=== PATIENT | female | born 1950 | race Caucasian/White ===

== ENCOUNTER 2018-01-20 09:02 | Outpatient (CLI) | payer MEDICARE, OTHER ==
--- NOTE | 2018-01-21 14:23 | Mammography Report ---
DIGITAL BILATERAL SCREENING MAMMOGRAM: 01/20/2018 COMPARISON: Mammogram 04/23/2016. INDICATION: Screening. TECHNIQUE: Bilateral CC and MLO breast views. FINDINGS: The breast parenchyma is extremely dense, which may limit the sensitivity of mammography. No dominant mass, architectural distortion, or concerning cluster of microcalcifications is seen. IMPRESSION: 1. BI-RADS CATEGORY 1-NEGATIVE. 2. RECOMMEND ANNUAL SCREENING MAMMOGRAM. STANDARD QUALIFYING STATEMENTS: 1. This examination was reviewed with the aid of Computer-Aided Detection (CAD) . 2. A negative or benign imaging report should not delay biopsy if clinically suspicious findings are present. Consider surgical consultation if warranted. More than 5 % of cancers are not identified by imaging. 3. Dense breasts may obscure an underlying neoplasm. TD: 01/21/2018 14:23 MAHENDRA
== END 2018-01-20 09:03 | disposition home or self-care (01) ==
LOC: DI.S 09:02
PROVIDERS: ATTEND Physician Assistant
DX: Z12.31 Encounter for screening mammogram for malignant neoplasm of breast (principal)
CPT/HCPCS: 77067

== ENCOUNTER 2019-12-21 09:00 | Outpatient (CLI) | payer MEDICARE, OTHER ==
--- NOTE | 2019-12-26 08:46 | Mammography Report ---
Reason: SCREENING MAMMO Procedure Date: 12/21/2019 Accession Number: [id number] / [id number] Procedure: CATHERINE - Screening Mammo w/Shant CPT Code: Final Report FULL RESULT: EXAM: Screening Mammo w/Shant DATE: 12/21/2019 9:28 AM CLINICAL HISTORY: Screening encounter. History of nulliparity. TECHNIQUE: (B) - Bilateral CC and MLO views were obtained. Left laterally exaggerated cc view obtained. COMPARISON: 01/20/2018 through 07/03/2010. PARENCHYMAL PATTERN: (VD) - The breast(s) demonstrate(s) extremely dense parenchyma, limiting the sensitivity of mammography. FINDINGS: There are coarse typically benign calcifications. There are no suspicious masses, calcifications, or areas of distortion. IMPRESSION: Benign findings. BI-RADS category 2. RECOMMENDATION: (ANNUAL) - Recommend routine annual screening mammography. BI-RADS CATEGORY: (2) - Benign Findings. STANDARD QUALIFYING STATEMENTS: 1. This examination was not reviewed with the aid of Computer-Aided Detection (CAD). 2. A negative or benign imaging report should not preclude biopsy if clinically suspicious findings are present. 3. Dense breasts may obscure an underlying neoplasm. 4. This examination was reviewed with the aid of 3D breast imaging (tomosynthesis).
== END 2019-12-21 09:01 | disposition home or self-care (01) ==
LOC: DI 09:00
PROVIDERS: ATTEND Physician Assistant
DX: Z12.31 Encounter for screening mammogram for malignant neoplasm of breast (principal)
CPT/HCPCS: 77063; 77067

== ENCOUNTER 2019-12-21 09:04 | Outpatient (CLI) | payer MEDICARE, OTHER ==
--- NOTE | 2019-12-22 08:31 | Ultrasound Report ---
Reason: THYROID NODULE Procedure Date: 12/21/2019 Accession Number: [id number] / [id number] Procedure: US - Head or Neck Soft Tissue CPT Code: Final Report FULL RESULT: EXAM: THYROID ULTRASOUND EXAM DATE: 12/21/2019 09:55 AM. CLINICAL HISTORY: Thyroid nodule. COMPARISON: MR SOLITARIO WO(UNPAIRED) 08/10/2019 1:26 PM UNKNOWN 06/06/2010 1:28 PM UNKNOWN 05/15/2010 10:40 AM. TECHNIQUE: Real time sonographic imaging of the thyroid was performed by the orchard pruner. Multiple livestock sales representative static images were saved for review. FINDINGS: THYROID GLAND: Right Lobe: 5.3 x 1.9 x 1.8 cm, volume 9.5 cc. Normal background echotexture. Right Lobe Nodules: Mid pole mostly solid, isoechoic, circumscribed nodule 0.9 x 2.0 x 2.1 cm. Previously measured at 1.0 x 1.3 x 2.0 cm. Stable contour in appearance. This nodule was the subject of a biopsy in 2009. Low suspicion. Inferior pole spongiform nodule 0.7 x 0.7 x 0.7 cm. Very low suspicion. Left Lobe: 4.9 x 1.5 x 1.6 cm, volume 6.2 cc. Normal background echotexture. Left Lobe Nodules: 4 subcentimeter very low suspicion cystic and spongiform nodules seen, the largest in the lower pole measuring 0.7 x 0.5 x 0.4 cm. The other nodules measure 5 mm or less. Isthmus: 0.3 cm AP. Isthmic Nodules: None. LYMPH NODES: No adenopathy demonstrated in the central or lateral compartment. OTHER: None. IMPRESSION: No significant change in size or appearance of a nodule in the right thyroid lobe. Other smaller nodules bilaterally as above. No FNA recommended at this time. Management recommendations are based on 2015 [place] [employer] Management Guidelines for Adult Patients with Thyroid Nodules and Differentiated Thyroid Cancer. RADIA
== END 2019-12-21 09:05 | disposition home or self-care (01) ==
LOC: DI 09:04
PROVIDERS: ATTEND Physician Assistant
DX: E04.2 Nontoxic multinodular goiter (principal)
CPT/HCPCS: 76536

== ENCOUNTER 2020-06-25 13:43 | Outpatient (CLI) | payer MEDICARE, OTHER ==
--- NOTE | 2020-06-25 15:08 | XRAY Report ---
PROCEDURE: Abdomen 1 View X-Ray INDICATIONS: ABDOMINAL DISTENSION TECHNIQUE: 1 view of the abdomen were acquired. COMPARISON: None. FINDINGS: Surgical changes and devices: None. Bowel: No pneumoperitoneum. The bowel gas pattern is normal. Soft tissues: No masses; visualized solid organ contours appear normal in size. No suspicious abdom inal calcifications. Bones: No suspicious bony abnormalities. IMPRESSION: No acute intra-abdominal findings. Reviewed by: Whitney Sanchez MD on 06/25/2020 3:07 PM PDT Approved by: Whitney Sanchez MD on 06/25/2020 3:07 PM PDT Station ID: [id number]
== END 2020-06-25 13:44 | disposition home or self-care (01) ==
LOC: DI.S 13:43
PROVIDERS: ATTEND Nurse Practitioner Family
DX: R14.0 Abdominal distension (gaseous) (principal)
CPT/HCPCS: 74018

== ENCOUNTER 2020-08-22 15:59 | Outpatient (CLI) | payer MEDICARE, OTHER ==
--- NOTE | 2020-08-22 17:04 | XRAY Report ---
PROCEDURE: Cervical Spine 2 View INDICATIONS: S/P CERVICAL SPINAL FUSION TECHNIQUE: 3 view(s) of the cervical spine were acquired. COMPARISON: None. FINDINGS: Bones: No fractures or dislocations to the T1 level. The lateral masses of C1 appear intact on the odontoid view. No suspicious bony lesions. Status post anterior cervical discectomy and fusion from C5 through C7. No evidence for hardware complication. There is minimal anterolisthesis of C7 on T1. Straightening of cervical lordosis likely related to combination of surgical fusion and patient posit ioning. Soft tissues: No prevertebral soft tissue swelling. IMPRESSION: Status post ACDF of C5-C7 without hardware complication. Minimal anterolisthesis of C7 o n T1. Reviewed by: Todd Oakes MD on 08/22/2020 5:03 PM PDT Approved by: Todd Oakes MD on 08/22/2020 5:03 PM PDT Station ID: [id number]
== END 2020-08-22 16:00 | disposition home or self-care (01) ==
LOC: DI.S 15:59
PROVIDERS: ATTEND Physician Assistant
DX: M43.12 Spondylolisthesis, cervical region (principal); Z98.1 Arthrodesis status
CPT/HCPCS: 72040

== ENCOUNTER 2021-02-24 09:22 | Outpatient (CLI) | payer MEDICARE, OTHER ==
--- NOTE | 2021-02-25 09:58 | Mammography Report ---
BILATERAL DIGITAL SCREENING MAMMOGRAM 3D/2D WITH EXAGGERATED CC: 02/24/2021 CLINICAL: Routine screening. Comparison is made to exams dated: 12/21/2019 mammogram, 01/20/2018 mammogram, and 04/23/2016 mammogram - [facility]. The tissue of both breasts is extremely dense, which lowers the sen sitivity of mammography. No significant masses, calcifications, or other findings are seen in either breast. There has been no significant interval change. IMPRESSION: NEGATIVE There is no mammographic evidence of malignancy. A 1 year screening mammogram is recommended. This exam was interpreted at Station ID: [id number]. NOTE: For mammograms, a report in lay terms will be sent to the patient. Approximately 15% of breast malignancies will not be visualized mammographically. In the management of a palpable breast mass, a negative mammogram must not discourage biopsy of a clinically suspicious lesion. Electronically Signed By: Edu Duarte M.D. ar/penrad:02/24/2021 10:18:55 ACR BI-RADS Category 1: Negative 3341F PARENCHYMAL PATTERN: (VD) - The breast(s) demonstrate(s) extremely dense parenchyma, limiting the sen sitivity of mammography. BI-RADS CATEGORY: (1) - 1 RECOMMENDATION: (ANNUAL) - Recommend routine annual screening mammography. [id number] 1 year screening LATERALITY: (B)
== END 2021-02-24 09:23 | disposition home or self-care (01) ==
LOC: DI.S 09:22
PROVIDERS: ATTEND Nurse Practitioner Family
DX: Z12.31 Encounter for screening mammogram for malignant neoplasm of breast (principal)

== ENCOUNTER 2021-06-30 08:00 | Outpatient (CLI) | payer MEDICARE, OTHER | END 2021-06-30 23:59 | disposition home or self-care (01) | LOC: LAB.S 08:00 | PROVIDERS: ATTEND Physician Assistant Medical | DX: R53.83 Other fatigue (principal); Z20.822 Contact with and (suspected) exposure to COVID-19 ==

== ENCOUNTER 2023-06-07 07:07 | Outpatient (CLI) | payer MEDICARE, OTHER | END 2023-06-07 07:08 | disposition home or self-care (01) | LOC: LAB.S 07:07 | PROVIDERS: ATTEND Internal Medicine | DX: Z53.9 Procedure and treatment not carried out, unspecified reason (principal) ==

== ENCOUNTER 2023-07-09 07:02 | Outpatient (CLI) | payer MEDICARE, OTHER ==
[2023-07-09 07:38] LABS: BASOPHILS % (AUTO) 0.7 %; EOSINOPHILS # (AUTO) 0.1 10^3/uL (0.0-0.7); EOSINOPHILS % (AUTO) 2.8 %; HCT - HEMATOCRIT 43.7 % (37.0-47.0); HGB - HEMOGLOBIN 14.5 g/dL (12.0-16.0); LYMPHOCYTES # (AUTO) 1.9 10^3/uL (1.5-3.5); LYMPHOCYTES % (AUTO) 43.6 %; MEAN CORPUSCULAR HEMOGLOBIN 33.9 pg (27.0-31.0); MEAN CORPUSCULAR HGB CONC 33.2 g/dL (32.0-36.0); MEAN CORPUSCULAR VOLUME 102.1 fL (81.0-99.0); MONOCYTES # (AUTO) 0.4 10^3/uL (0.0-1.0); MONOCYTES % (AUTO) 8.3 %; NEUTROPHILS % (AUTO) 44.6 %; PLT - PLATELET COUNT 221 10^3/uL (130-450); RED BLOOD COUNT 4.28 10^6/uL (4.20-5.40); RED CELL DISTRIBUTION WIDTH 13.2 % (12.0-15.0); WHITE BLOOD COUNT 4.4 x10^3/uL (4.8-10.8)
[2023-07-09 11:21] LABS: CRP - C-REACTIVE PROTEIN < 0.5 mg/dL (<0.5)
[2023-07-13 10:08] LABS: HDL-P (TOTAL) 39.4 umol/L (>=30.5); LDL SIZE 21.9 nm (>20.5); LDL-P 1536 nmol/L (<1000); LP-INSULIN RESISTANCE SCORE <25 (<=45); SMALL LDL-P 271 nmol/L (<=527)
[2023-07-13 16:36] LABS: PATHOLOGIST SLIDE COMMENTS SEE SEPARATE REPORT
== END 2023-07-09 07:03 | disposition home or self-care (01) ==
LOC: LAB 07:02
PROVIDERS: ATTEND Internal Medicine
DX: R53.83 Other fatigue (principal); Z78.9 Other specified health status; R68.89 Other general symptoms and signs; E78.5 Hyperlipidemia, unspecified; E55.9 Vitamin D deficiency, unspecified; R78.89 Finding of other specified substances, not normally found in blood; Z86.2 Personal history of diseases of the blood and blood-forming organs and certain disorders involving the immune mechanism; K31.83 Achlorhydria; B97.89 Other viral agents as the cause of diseases classified elsewhere
CPT/HCPCS: 36415; 82306; 82728; 83704; 85025; 86140

== ENCOUNTER 2023-09-13 09:12 | Outpatient (CLI) | payer MEDICARE, OTHER ==
--- NOTE | 2023-09-13 16:04 | Ultrasound Report ---
PROCEDURE: Ext Limited Non Vascular INDICATIONS: POPLITEAL CYST LEFT KNEE TECHNIQUE: Real-time scanning was performed of the left popliteal fossa, with image documentation. COMPARISON: None. FINDINGS: Small anechoic fluid collection is seen at the popliteal fossa measuring 2.2 x 0.9 x 1.5 c m. Kidneys are seen at the joint is not definitely demonstrated. A thin septation is seen without a s uspicious solid component. IMPRESSION: Small 2.2 cm fluid collection in the popliteal fossa is most likely a Becerra's cyst. Reviewed by: Edu Duarte MD on 09/13/2023 4:03 PM PST Approved by: Edu Duarte MD on 09/13/2023 4:03 PM PST Station ID: [id number]
== END 2023-09-13 09:13 | disposition home or self-care (01) ==
LOC: DI 09:12
PROVIDERS: ATTEND Internal Medicine
DX: M71.21 Synovial cyst of popliteal space [Baker], right knee (principal)

== ENCOUNTER 2023-09-14 12:54 | Outpatient (CLI) | payer MEDICARE, OTHER ==
--- NOTE | 2023-09-15 12:03 | Mammography Report ---
BILATERAL DIGITAL SCREENING MAMMOGRAM 3D/2D WITH EXAGGERATED CC: 09/14/2023 CLINICAL: Routine screening. Comparison is made to exams dated: 02/24/2021 mammogram, 12/21/2019 mammogram, 01/20/2018 mammogram, an d 04/23/2016 mammogram - [facility]. Both breasts are heterogeneously dense, which may obscure small masses (category c / 51-75% glandular tissue). No significant masses, calcifications, or other findings are seen in either breast. IMPRESSION: NEGATIVE There is no mammographic evidence of malignancy. A 1 year screening mammogram is recommended. Based on the Tyrer Cuzick model (a risk assessment model) the patients lifetime risk is 5.8% and her 10 year risk is 4.7%. According to the ACR, ACS, and NCCN guidelines, an annual breast MRI exam chino g with mammogram is recommended if the patients lifetime risk is 20% or greater. This exam was interpreted at Station ID: [id number]. NOTE: For mammograms, a report in lay terms will be sent to the patient. Approximately 15% of breast malignancies will not be visualized mammographically. In the management of a palpable breast mass, a negative mammogram must not discourage biopsy of a clinically suspicious lesion. Electronically Signed By: Vanna Ann M.D., PH.D eb/mary:09/14/2023 22:50:42 letter sent: No_Letter ACR BI-RADS Category 1: Negative 3341F PARENCHYMAL PATTERN: (D) - The breast(s) demonstrate(s) heterogeneously dense fibroglandular cam celaya. BI-RADS CATEGORY: (1) - 1 Mammogram [id number] 1 year screening LATERALITY: (B)
== END 2023-09-14 12:55 | disposition home or self-care (01) ==
LOC: DI.S 12:54
DX: Z12.31 Encounter for screening mammogram for malignant neoplasm of breast (principal); R92.333 Mammographic heterogeneous density, bilateral breasts

== ENCOUNTER 2023-12-01 08:02 | Outpatient (CLI) | payer MEDICARE, OTHER ==
[2023-12-01 08:49] LABS: ABSOLUTE RETICS # AUTO 0.064 10^6/uL (0.020-0.110); RED BLOOD COUNT 4.24 10^6/uL (4.20-5.40); RETICULOCYTE COUNT % (AUTO) 1.52 % (0.5-2.3)
[2023-12-01 10:50] LABS: BASOPHILS % (AUTO) 0.6 %; EOSINOPHILS # (AUTO) 0.1 10^3/uL (0.0-0.7); HCT - HEMATOCRIT 43.4 % (37.0-47.0); HGB - HEMOGLOBIN 13.9 g/dL (12.0-16.0); LYMPHOCYTES # (AUTO) 2.6 10^3/uL (1.5-3.5); MEAN CORPUSCULAR HEMOGLOBIN 32.6 pg (27.0-31.0); MEAN CORPUSCULAR VOLUME 101.6 fL (81.0-99.0); MEAN PLATELET VOLUME 11.9 fL (7.9-10.8); MONOCYTES # (AUTO) 0.4 10^3/uL (0.0-1.0); MONOCYTES % (AUTO) 8.8 %; NEUTROPHILS # (AUTO) 1.5 10^3/uL (1.5-6.6); NEUTROPHILS % (AUTO) 32.6 %; PLT - PLATELET COUNT 245 10^3/uL (130-450); RED BLOOD COUNT 4.27 10^6/uL (4.20-5.40); WHITE BLOOD COUNT 4.7 x10^3/uL (4.8-10.8)
[2023-12-01 10:58] LABS: SLIDE REVIEW? Indicated
[2023-12-01 11:13] LABS: RBC MORPHOLOGY (MULTIPLE) 2+ SPHEROCYTES (NORMAL)
[2023-12-04 15:09] LABS: FOLATE HEMOLYSATE 402.4 ng/mL (Not Estab.); FOLATE RBC 965 ng/mL (>498); HEMATOCRIT 41.7 % (34.0-46.6)
[2023-12-07 14:09] LABS: INTRINSIC FACTOR AB 1.1 AU/mL (0.0-1.1)
== END 2023-12-01 08:03 | disposition home or self-care (01) ==
LOC: LAB 08:02
PROVIDERS: ATTEND Internal Medicine
DX: D75.89 Other specified diseases of blood and blood-forming organs (principal); R68.89 Other general symptoms and signs; K31.83 Achlorhydria; R79.9 Abnormal finding of blood chemistry, unspecified; R82.90 Unspecified abnormal findings in urine
CPT/HCPCS: 36415; 81599; 82570; 82747; 83090; 83655; 83921; 85014; 85025; 85045; 86340

== ENCOUNTER 2023-12-29 07:14 | Outpatient (CLI) | payer MEDICARE, OTHER ==
[2023-12-29 07:53] LABS: CREATININE 0.7 mg/dL (0.6-1.3)
[2023-12-29] MEDS ORDERED: GADOTERATE MEGLUMINE 10 MMOL/20 ML VIAL ONE (08:15)
--- NOTE | 2023-12-29 11:25 | MRI Report ---
PROCEDURE: Knee LT W/WO INDICATIONS: SYNOVIAL CYST CONTRAST: clariscan 11.8ml TECHNIQUE: Noncontrast sagittal PD fast spin echo and T2 fast spin echo with fat saturation, sagittal 3-D spoile d GE with fat saturation; coronal T1 spin echo and PD fast spin echo with fat saturation, and axial T 1 spin echo and PD fast spin echo with fat saturation through the knee. Post-contrast axial, coronal , and sagittal T1 spin echo with fat saturation through the knee. COMPARISON: None. FINDINGS: Image quality: Excellent. Menisci: There is medial extrusion of the medial meniscus. There is amorphous and linear oblique high T2 signal intensity within the inner, middle, peripheral thirds of the medial meniscal body and post erior horn, demonstrating inferior articular surface extension, indicating complex tearing. Linear ho rizontal high T2 signal intensity traverses the inner, middle, peripheral thirds of the lateral menis esteban body and posterior horn, demonstrating inferior articular surface extension, indicating horizonta l tearing. Cruciate ligaments: The anterior and posterior cruciate ligaments appear intact. Medial structures: The medial collateral ligament appears intact. Visualized portions of the pes ans erinus tendons appear normal. No abnormal bursal fluid. Lateral structures: The lateral collateral ligament demonstrates mild T2 signal elevation at the fem oral origin. The long and short heads of the biceps femoris tendon appear intact. The popliteus tend on appears normal. Iliotibial band appears normal. Anterior structures: The quadriceps and patellar tendons appear intact. Patellar alignment is noam l. No femoral trochlear dysplasia or ventral trochlear prominence. No edema in the infrapatellar fa t pad. Bones and cartilage: No suspicious osseous enhancement. No bone marrow contusions or fractures. The re is moderate subchondral degenerative marrow edema within the posterior weightbearing aspect of the medial tibial plateau. Subchondral cyst formation within the posterior weightbearing aspect of the l ateral tibial plateau is present. Moderate articular cartilage loss diffusely overlies the weightbear ing aspects of the medial femoral condyle and medial tibial plateau. Moderate articular cartilage los s overlies the medial lateral patellar facets as well as the patellar apex. Joint space: There is a small knee joint effusion and a small Becerra's cyst. Normal appearing synovi al plicae are incidentally noted. No suspicious soft tissue enhancement. IMPRESSION: 1. Tricompartmental osteoarthritis with associated articular cartilage loss. 2. Medial and lateral meniscal tearing. 3. Low-grade lateral collateral ligament tear. 4. Knee joint effusion and Becerra's cyst. Reviewed by: Jn Toure MD on 12/29/2023 11:23 AM PST Approved by: Jn Toure MD on 12/29/2023 11:23 AM PST Station ID: [id number]
[2023-12-29] MEDS: GADOTERATE MEGLUMINE 10 MMOL/20 ML VIAL IVP ONE (16:02)
== END 2023-12-29 07:15 | disposition home or self-care (01) ==
LOC: LAB 07:14
PROVIDERS: ATTEND Internal Medicine
DX: M71.22 Synovial cyst of popliteal space [Baker], left knee (principal); M17.12 Unilateral primary osteoarthritis, left knee; S83.242A Other tear of medial meniscus, current injury, left knee, initial encounter; S83.282A Other tear of lateral meniscus, current injury, left knee, initial encounter; S83.422A Sprain of lateral collateral ligament of left knee, initial encounter
CPT/HCPCS: 36415; 73723; 82565; A9575

== ENCOUNTER 2024-06-06 07:00 | Outpatient (CLI) | payer MEDICARE, OTHER ==
[2024-06-06 07:35] LABS: BASOPHILS % (AUTO) 0.6 %; EOSINOPHILS # (AUTO) 0.1 10^3/uL (0.0-0.7); EOSINOPHILS % (AUTO) 2.4 %; HCT - HEMATOCRIT 40.2 % (37.0-47.0); HGB - HEMOGLOBIN 13.4 g/dL (12.0-16.0); LYMPHOCYTES # (AUTO) 1.9 10^3/uL (1.5-3.5); LYMPHOCYTES % (AUTO) 37.6 %; MEAN CORPUSCULAR HEMOGLOBIN 33.4 pg (27.0-31.0); MEAN CORPUSCULAR HGB CONC 33.3 g/dL (32.0-36.0); MEAN CORPUSCULAR VOLUME 100.2 fL (81.0-99.0); MEAN PLATELET VOLUME 10.8 fL (7.9-10.8); MONOCYTES # (AUTO) 0.5 10^3/uL (0.0-1.0); MONOCYTES % (AUTO) 9.9 %; NEUTROPHILS # (AUTO) 2.5 10^3/uL (1.5-6.6); NEUTROPHILS % (AUTO) 49.3 %; PLT - PLATELET COUNT 204 10^3/uL (130-450); RED BLOOD COUNT 4.01 10^6/uL (4.20-5.40); RED CELL DISTRIBUTION WIDTH 13.2 % (12.0-15.0); WHITE BLOOD COUNT 5.1 x10^3/uL (4.8-10.8)
[2024-06-06 07:39] LABS: CALCIUM, IONIZED 1.2 mmol/L (1.15-1.33); VBG PH 7.375 (7.31-7.41)
[2024-06-06 08:05] LABS: PARTIAL THROMBOPLASTIN TIME 29.8 secs (24.9-33.3)
[2024-06-06 08:09] LABS: THYROID STIMULATING HORMONE 1.76 uIU/mL (0.34-5.60)
[2024-06-06 08:10] LABS: INR 1.2 (0.8-1.2); PT - PROTHROMBIN TIME 12.9 secs (9.9-12.6)
[2024-06-06 08:16] LABS: ALBUMIN 4.2 g/dL (3.2-5.5); ALBUMIN/GLOBULIN RATIO 1.5 (1.0-2.2); BILIRUBIN,TOTAL 0.7 mg/dL (0.2-1.0); CALCIUM 9.9 mg/dL (8.5-10.3); CREATININE 0.7 mg/dL (0.6-1.3); POTASSIUM 3.6 mmol/L (3.5-4.5)
[2024-06-07 11:12] LABS: VITAMIN D 25-HYDROXY 39.9 ng/mL (30.0-100.0)
[2024-06-07 17:08] LABS: THYROGLOBULIN ANTIBODY <1.0 IU/mL (0.0-0.9); THYROID PEROXIDASE (TPO) AB <9 IU/mL (0-34)
== END 2024-06-06 07:01 | disposition home or self-care (01) ==
LOC: LAB 07:00
PROVIDERS: ATTEND Internal Medicine
DX: Z01.812 Encounter for preprocedural laboratory examination (principal); E55.9 Vitamin D deficiency, unspecified; D75.89 Other specified diseases of blood and blood-forming organs; R94.6 Abnormal results of thyroid function studies; R79.89 Other specified abnormal findings of blood chemistry; E04.2 Nontoxic multinodular goiter
CPT/HCPCS: 36415; 80053; 81599; 82306; 82330; 82607; 83970; 84439; 84443; 84481; 85025; 85610; 85730; 86376; 86800

== ENCOUNTER 2024-07-15 07:48 | Outpatient (CLI) | payer MEDICARE, OTHER ==
[2024-07-15 10:08] LABS: ESTIMATED AVERAGE GLUCOSE 111 mg/dL (70-100); HEMOGLOBIN A1c% 5.5 % (4.27-6.07)
== END 2024-07-15 07:49 | disposition home or self-care (01) ==
LOC: LAB 07:48
PROVIDERS: ATTEND Orthopaedic Surgery
DX: R73.9 Hyperglycemia, unspecified (principal)
CPT/HCPCS: 36415; 83036